=== PATIENT | male | born 1955 | race Caucasian/White ===

== ENCOUNTER 2018-03-29 15:01 | Emergency (ER) | payer SELFPAY ==
[2018-03-29] MEDS ORDERED: predniSONE 20 MG TAB PO ONE (15:15)
--- NOTE | 2018-03-29 15:17 | ER Report ---
History and Physical Time Seen By MD: 15:10 Hx. 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 Came to ed because for lat 2 weeks has had a cough and felt sob. Pt usually smokes 1 1/2 pack of cigarettes a day but stopped smoking a week ago to see if it would help. still feels sob. Cough is currently non productive. no fevers. no chest pain. pt was at the [employer] station and felt sob walking so called 911. wheezing on there arrival with sats in low 80s. pt given a treatment in route. Pt feeling improvement with treatment and is asking for inhaler to go home with. REVIEW OF SYSTEMS: Constitutional: No fever, no chills. Eyes: No discharge. ENT: No sore throat. Cardiovascular: No chest pain, no palpitations. Respiratory: + cough, + shortness of breath. Gastrointestinal: No abdominal pain, no vomiting. Genitourinary: No hematuria. Musculoskeletal: No back pain. Skin: No rashes. Neurological: No headache. Allergies: Coded Allergies: No Known Drug Allergies (Unverified , 03/29/18) Home Meds Active Scripts Prednisone (PREDNISONE) 20 Mg Tablet, 20 MG PO BID, #10 TAB Prov:TRISTAN VASQUES V DO 03/29/18 Past Medical/Surgical History Pmhx: ? emphysema Pshx: denied Reviewed Nurses Notes: Yes Smoking Status: Current: Every Day Smoker Hx Alcohol Use: Yes Constitutional Vital Sign - Last 24 Hours 03/29/18 03/29/18 03/29/18 03/29/18 15:01 15:04 15:11 15:21 Temp 98.6 Pulse 95 96 Resp 16 17 15 B/P (MAP) 161/91 (114) 161/91 Pulse Ox 89 88 O2 Delivery Room Air 03/29/18 03/29/18 03/29/18 03/29/18 15:30 15:31 15:40 15:40 Pulse 92 89 Resp 15 15 B/P (MAP) 142/85 (104) Pulse Ox 88 92 O2 Delivery Room Air 03/29/18 03/29/18 03/29/18 03/29/18 15:41 15:51 16:00 16:01 Pulse 87 83 86 Resp 26 9 12 B/P (MAP) 132/74 (93) Pulse Ox 93 95 95 03/29/18 03/29/18 03/29/18 16:11 16:44 16:44 Pulse 85 89 Resp 9 15 Pulse Ox 97 92 O2 Delivery Room Air Physical Exam General Appearance: The patient is alert, has no immediate need for airway protection and no signs of toxicity. Eyes: Pupils equal and round no pallor or injection, EOMI ENT: no pharyngeal erythema or exudates, Mucous membranes are moist Respiratory: There are no retractions, decreased breath sounds with wheezing Cardiovascular: Regular rate and rhythm. pulses are equal and symmetrical Gastrointestinal: Abdomen is soft and non tender, no masses, bowel sounds normal, no guarding, no rigidity or rebound, + obese Neurological: Cranial nerves II-XII grossly intact, no sensory or motor loss Skin: Warm and dry, no rashes. Musculoskeletal: Neck is supple non tender, no vertebral tenderness Extremities are nontender, nonswollen and have full range of motion. DIFFERENTIAL DIAGNOSIS: After history and physical exam differential diagnosis was considered for pneumonia, bronchitis, viral illness, altitude illnes Medical Decision Making EKG/Imaging Imaging napd ED Course/Re-evaluation ED Course check xray, steroids and nebulizer 03/29/2018 4:31:49 pm Pt feeling much better. Moving air on reevaluation. Pt has 15 more minutes to his nebulizer. Pt feels he can go after the treatment. will d/c with inhaler and spacer. Pts truck is at the [employer] station so will get him a taxi. will send him home with a script to fill for prednisone to be started tomorrow. pt is leaving [facility] so will not send to our local pharmacy. Decision to Disposition Date: March 29, 2018 Decision to Disposition Time: 16:46 Depart Departure Latest Vital Signs Vital Signs Date Time Temp Pulse Resp B/P (MAP) Pulse Ox O2 Delivery O2 Flow Rate FiO2 03/29/18 16:44 92 Room Air 03/29/18 16:44 89 15 03/29/18 16:00 132/74 (93) 03/29/18 15:04 98.6 Impression: Primary Impression: Bronchospasm with bronchitis, acute Condition: Improved Disposition: HOME OR SELF-CARE New Scripts Prednisone (PREDNISONE) 20 Mg Tablet 20 MG PO BID, #10 TAB Prov: TRISTAN VASQUES DO 03/29/18 Patient Instructions: Asthma (GEN) Additional Instructions: Use your albuterol inhaler with the spacer 2 puffs every 4 hours as needed for cough, shortness of breath or wheezing. Fill your script for prednisone. You need to start it tomorrow. Twice a day for 5 days. This will help you breath. Follow up with your doctor when you return to [place]. Do not start smoking. TRISTAN VASQUES DO March 29, 2018 15:17
[2018-03-29] MEDS ORDERED: IPRATROPIUM 0.5MG/2.5ML NEB NEB ONE (15:25)
[2018-03-29] MEDS ORDERED: ALBUTEROL 2.5 MG/3 ML NEB NEB ONE (15:25)
--- NOTE | 2018-03-29 15:40 | RADIOLOGY IMAGING REPORT ---
FACILITY: [facility] - [place] PATIENT NAME: Angelo Heller : 1955 MR: [id number] V: [id number] EXAM DATE: ORDERING PHYSICIAN: TRISTAN VASQUES TECHNOLOGIST: Location: [facility] [place] Patient: Angelo Heller : 1955 Visit/Account:[id number] Date of Sevice: 03/29/2018 Study: Frontal and lateral views of the chest Indication: Cough and shortness of breath Comparison study: None Findings: PA and lateral views of the chest demonstrate no evidence of acute infiltrate. There is no evidence of pleural effusion. There is no evidence of pneumothorax. The mediastinal, cardiac, and diaphragmatic contours are unremarkable. There are old right-sided rib fractures noted. IMPRESSION: No acute cardiopulmonary abnormality identified. Report Dictated By: Pritesh Andersen at 03/29/2018 3:34 PM Report E-Signed By: Pritesh Andersen at 03/29/2018 3:35 PM WSN:[id number]
[2018-03-29 16:30] VITALS: BP 139/75
[2018-03-29] MEDS ORDERED: PRED20TA6 PO (16:35)
[2018-03-29] MEDS ORDERED: ALBUTEROL SULFATE 90 MCG/ACT 8.5 GM HNH INH ONE (16:40)
== END 2018-03-29 16:55 ==
LOC: ER 15:10
DX: J20.9 Acute bronchitis, unspecified (principal)
CPT/HCPCS: 71046; 94640; 94644; 99283; J7512; J7613; J7644

== ENCOUNTER → 2018-03-29 | Outpatient (CLI) | payer SELFPAY ==
[~2018-03-29] MED LIST: PRED20TA6 PO
== END ==
LOC: AMB 14:39
PROVIDERS: ATTEND Nurse Practitioner
DX: R06.02 Shortness of breath (principal); F17.210 Nicotine dependence, cigarettes, uncomplicated; R25.2 Cramp and spasm
CPT/HCPCS: A0425; A0427